=== PATIENT | female | born 1955 | race Caucasian/White ===

== ENCOUNTER → 2017-01-16 | Outpatient (CLI) | payer BC ==
[~2017-01-16] MED LIST: FISH OIL 1,01 CAP.EC PO; FOSAMAX70 MG PO; SIMVASTATIN40 MG PO; TRIAMTERENE-HCT1 TA6 PO
--- NOTE | ~2017-01-16 | MY29 ---
[facility] A Service of [facility] RADIOLOGY TEXT RESULTS PATIENT: JORJE RIOS LOCATION: [facility] : 57 UNIT #: [id number] AGE: [address]: Nayla Allen APRN SEX: F ORDER DR: [id number] [facility] [address] [place], [place] [address] [id number] O MR#: [id number] Acc #: [id number] NAME: JORJE RIOS : 1955 SEX: F STUDY DATE/TIME: 01/16/2017 10:28 UNIT: [facility] ROOM: STUDY DESCRIPTION: MY AMANDA SCREENING W/ CAD BILAT Attending Physician: Nayla Allen A.P.R.N. Referring Physician: Nayla Allen A.P.R.N. Ordering Physician: Nayla Allen A.P.R.N. Primary Care Physician: Nayla Allen A.P.R.N. MEDICAL IMAGING REPORT This report is preliminary unless electronic signature is present EXAM Digital screening mammogram, 01/16/2017 HISTORY 61-year-old woman, positive family history, mother in her 60s. Prior excisional left breast biopsy 2013. Prior image-guided right breast biopsy. Annual screen. COMPARISON Mammograms date to 10/20/2005, with most recent 01/11/2016. FINDINGS Digital imaging of each breast was completed utilizing screening protocol. Biopsy marker is positioned mid outer left breast location. Review includes FDA-approved CAD device. Breast parenchyma is heterogeneously dense, with a small nodular pattern in each breast. Single image-guided biopsy markers are stable in each breast. Postsurgical architectural distortion mid outer left breast is less conspicuous. There is no interval occurring mass. I see no suspicious microcalcifications and no suspicious architectural deformity. IMPRESSION Stable benign mammogram. Annual screening recommended. Patients over the age of 40 are entered into a reminder system with target due date for the next mammogram. A result letter will also be sent to the patient. BIRADS: 2 Benign Finding [facility] A Service of [facility] RADIOLOGY TEXT RESULTS PATIENT: JORJE RIOS LOCATION: [facility] : 57 UNIT #: [id number] AGE: [address]: Nayla Allen APRN SEX: F ORDER DR: Dictated by... Javier Brown M.D. THIS IS AN ELECTRONICALLY VERIFIED REPORT Javier Brown M.D. at 01/16/2017 3:01 PM CR/kirby TD: 01/16/2017 14:28 JOB #: [id number] MEDICAL IMAGING REPORT Page 1 of 1 COPY
== END | disposition home or self-care (01) ==
LOC: CWCC 09:45
DX: Z12.31 Encounter for screening mammogram for malignant neoplasm of breast (principal); Z80.3 Family history of malignant neoplasm of breast; Z98.890 Other specified postprocedural states
CPT/HCPCS: G0202